=== PATIENT | male | born 1970 ===

== ENCOUNTER 2020-03-26 09:40 | Outpatient (CLI) | payer OTHER, SELFPAY ==
--- NOTE | 2020-04-02 16:56 | SLEEP_ITS ---
Home Sleep Test DATE OF STUDY: 03/26/2020 ORDERING PHYSICIAN: Santhosh Avelar M.D. REASON FOR THE STUDY: Hypersomnia. HISTORY: This patient is a 50-year-old man, 5 feet 7 inches tall, weighing 180 pounds with a body mass index of 28.2. He has hypertension. He snores especially on his back. Most of the time he sleeps on the side, does not have refreshing sleep. This has been going on for several years. He occasionally awakens at night with heartburn, belching, coughing, occasionally snores loud enough that others complain about it, but does not awaken from sleep feeling short of breath. He constantly has trouble sleeping if he has a cold. He occasionally wakes up gasping for breath at night. He rarely has breathing problems at night observed by others. He occasionally sweats excessively at night. He rarely notices his heart pounding or beating irregularly at night. He rarely falls asleep during the day, rarely involuntarily, never while driving, with physical effort. He does not have loss of muscle tone with strong emotion. He does not have daytime difficulties due to excessive sleepiness. He is never afraid to go to sleep. He does not have nightmares. He does not remember his dreams. He occasionally has racing thoughts, rarely has feelings of sadness, depression and occasionally has anxiety. He occasionally has muscular tension. He occasionally notices parts of his body jerking. He does not kick at night. He rarely has crawling aching feelings in his legs before sleep and rarely has leg pain during the night. He does not have morning jaw pain. He does not grind his teeth during sleep. He occasionally is bothered by pain during the day, is awakened by pain at night and occasionally wakes up feeling stiff in the morning. He frequently wakes up with sore achy muscles. He rarely wakes up with pain in the neck and spine. He has fatigue, memory problems and is unable to relax. He goes to bed between 10:00 and 11:00 p.m., falling asleep quickly, waking 1-2 times, staying awake for about 5 minutes, and then he will return to sleep. He wakes at 04:45 a.m. during the week. On weekends, he goes to bed at midnight and awakens between 09:00 and 11:00 a.m., so there is some recovery sleep on the weekends. He does not take naps. A short nap is not refreshing. He is usually drowsy in the morning for 2 hours or longer. MEDICAL COMORBIDITIES: Hypertension, chronic anxiety, positive BI, chronic depression, history of gram-negative sepsis. MEDICATIONS: 1. Wellbutrin 300 mg in the morning. 2. Amlodipine 5 mg a day. 3. Tamsulosin 0.4 mg daily. HABITS: Never smoked tobacco. Caffeine, 4-5 servings per day. No alcohol or recreational drugs. DESCRIPTION OF THE STUDY: On the [place] Sleepiness Scale, his score is 17, elevated. This was conducted as an unattended type 3 portable home sleep test using 4 channel monitoring with respiratory effort channel, snoring channel, oxygen saturation channel, and heart rate channel. This study was scored using [facility] guidelines. Duration of the study was 8 hours 26 minutes. The apnea-hypopnea index is 6. The oxygen desaturation index is 5.3. Lowest desaturation is 89%. He had 4 apneas. He had 3 apneas were obstructive, 75% of the apneas. He had 1 central apnea, 25% of his apneas, 43 hypopneas and 44 snoring events. He desaturated 45 times. Heart rate ranged from 57 to 107. IMPRESSION: 1. This home sleep test shows evidence of at least mild obstructive sleep apnea syndrome G47.33 with an apnea-hypopnea index of 6, lowest desaturation to 89% and 44 desaturations. No time was spent below 88% saturation. Given medical comorbidities of hypertension and chronic depression, the patient is a candidate for PAP therapy. O
== END 2020-03-26 09:41 | disposition home or self-care (01) ==
PROVIDERS: PCP Family Medicine; Visit Provider Family Medicine
DX: G47.33 Obstructive sleep apnea (adult) (pediatric) (principal)
CPT/HCPCS: 95806

== ENCOUNTER → 2020-12-28 14:44 | Outpatient (CLI) | payer OTHER, SELFPAY ==
--- NOTE | ~2020-12-28 | CT_ITS ---
EXAMINATION: CT brain wo con DATE: 12/28/2020 14:59 INDICATION: Left posterior headache. TECHNIQUE: Computed tomography (CT) of the head was performed without intravenous contrast. The mA wa s adjusted according to patient size. Iterative reconstruction technique was employed. The dose-lengt h product was 599.57 mGy-cm. COMPARISON: None FINDINGS: There is no intracranial hemorrhage, acute infarction, or abnormal intracranial mass lesion . The ventricles are normal in size. There is mild mucosal thickening in sphenoid sinus. The mastoid air cells are normal. The orbits are normal. IMPRESSION: 1. Normal brain. Reviewed, dictated and finalized at location B. IMPRESSION: 1. Normal brain.
== END ==
PROVIDERS: Visit Provider Nurse Practitioner Family
DX: R51.9 Headache, unspecified (principal)
CPT/HCPCS: 70450

== ENCOUNTER → 2021-09-16 16:33 | Outpatient (CLI) | payer OTHER, SELFPAY ==
--- NOTE | ~2021-09-16 | XR_ITS ---
EXAMINATION: XR hip LT min 3V w AP pelvis EXAM DATE: 09/16/2021 17:13 INDICATION: M25.552 - Pain in left hip , intermittent. TECHNIQUE: Left hip frontal, 'frog leg' projections for interpretation. Frontal projection pelvis. C omparison is made to prior examination from 02/16/2019. FINDINGS: Smooth hip femoral head contour, no radiographic evidence of avascular necrosis. There is mild to moderate symmetric bilateral hip primary osteoarthritis. There are no acute fractures or disl ocations identified. There is no subcutaneous gas. The soft tissue is unremarkable. There are no radiopaque foreign bodies. IMPRESSION: Mild to moderate symmetric bilateral hip osteoarthritis. Reviewed, dictated and finalized at location G. TER COACH DRIVER
--- NOTE | ~2021-09-16 | XR_ITS ---
EXAMINATION: XR knee LT min 4V EXAM DATE: 09/16/2021 17:13 INDICATION: M25.562 - Pain in left knee . TECHNIQUE: Left knee lateral, frontal AP, frontal PA tunnel, sunrise projections. There is no prior study for comparison. FINDINGS: No evidence osteochondral defect or joint body in the left knee joint. No bony productiv e changes or joint effusion. There are no acute fractures or dislocations identified. There is no asher bcutaneous gas. The soft tissue is unremarkable. There are no radiopaque foreign bodies. IMPRESSION: Unremarkable left knee exam. Reviewed, dictated and finalized at location G. HER ANALYST
== END ==
PROVIDERS: PCP Family Medicine; Visit Provider Family Medicine
DX: M25.552 Pain in left hip (principal); M25.562 Pain in left knee; G89.29 Other chronic pain; M16.0 Bilateral primary osteoarthritis of hip
CPT/HCPCS: 73502; 73564

== ENCOUNTER → 2023-01-07 14:35 | Outpatient (CLI) | payer OTHER, SELFPAY ==
--- NOTE | ~2023-01-07 | MR_ITS ---
MRI of the lumbar spine Clinical History: Radiculopathy Technique: Axial T2-weighted images, and sagittal T1-weighted, T2-weighted, and T2 fat-sat images wer e acquired. Findings: No fracture identified. 4 mm retrolisthesis of L5 over S1 noted. There are mild reactive ma rrow signal changes about the L5-S1 disc space due to advanced degenerative disc narrowing at this le ramesh. At L1-L2, there is no disc bulge or herniation. There is mild facet arthropathy. No central canal anamika nosis or neural foraminal narrowing. At L2-L3, there is no disc bulge or herniation. There is minimal facet arthropathy. No central canal stenosis or neural foraminal narrowing. At L3-L4, there is no disc bulge or herniation. There is mild to moderate facet arthropathy. No centr al canal stenosis or neural foraminal narrowing. At L4-L5, there is mild disc bulge with advanced facet arthropathy. There is minimal central canal st enosis. Probable minimal left neural foraminal narrowing. Right neural foramen preserved. At L5-S1, there is mild disc bulge and mild facet arthropathy. No central canal stenosis. There is mi nimal bilateral neural foraminal narrowing. Paravertebral soft tissues are unremarkable. Impression: Minimal degenerative spondylosis, as above. 4 mm retrolisthesis of L5 over S1. Reviewed, dictated and finalized at [facility]. Impression: Minimal degenerative spondylosis, as above. 4 mm retrolisthesis of L5 over S1.
== END ==
DX: M47.26 Other spondylosis with radiculopathy, lumbar region (principal)
CPT/HCPCS: 72148